=== PATIENT | female | born 1990 | race African-American/Black ===

== ENCOUNTER 2023-08-26 09:30 | Emergency (ER) | payer MEDICAID ==
[~2023-08-26] VITALS: Ht 172.7 cm; Wt 133.4 kg
[2023-08-26 09:53] VITALS: BP 137/80; PULSE 92; RESP 20; TEMP 98.4; O2SAT 100
[2023-08-26] MEDS ORDERED: KETOROLAC 30 MG/ML VIAL IVP ONE (10:30)
[2023-08-26] MEDS ORDERED: ACETAMINOPHEN 325 MG TAB PO ONE (10:30)
[2023-08-26] MEDS ORDERED: PROCHLORPERAZINE 10 MG/2 ML VIAL IVP ONE (10:30)
[2023-08-26] MEDS ORDERED: diphenhydrAMINE 50 MG/ML VIAL IVP ONE (10:30)
[2023-08-26] MEDS ORDERED: NACL 0.9% 1,000 ML IV ONE (10:30)
[2023-08-26 12:46] VITALS: O2SAT 100
[2023-08-26 14:05] VITALS: PULSE 92; RESP 20; TEMP 98.4; O2SAT 100
[2023-08-26 14:08] VITALS: BP 111/57
== END 2023-08-26 14:07 | disposition home or self-care (01) ==
LOC: MED 09:30
DX: G43.909 Migraine, unspecified, not intractable, without status migrainosus (principal); Z91.018 Allergy to other foods
CPT/HCPCS: 81025; 96361; 96374; 96375; 99284; J0780; J1200; J1885; J7030

== ENCOUNTER 2023-09-28 00:15 | Emergency (ER) | payer MEDICAID ==
[~2023-09-28] VITALS: Ht 172.7 cm; Wt 132.0 kg
[2023-09-28 00:57] VITALS: BP 111/68; PULSE 71; RESP 20; TEMP 98; O2SAT 98
[2023-09-28] MEDS ORDERED: IBUP-2213 PO (02:33)
[2023-09-28] MEDS ORDERED: PRED20TA5 PO (02:33)
[2023-09-28 02:40] VITALS: BP 111/68; PULSE 71; RESP 20; TEMP 98; O2SAT 98
== END 2023-09-28 02:40 | disposition home or self-care (01) ==
LOC: MED 01:18
DX: J02.9 Acute pharyngitis, unspecified (principal); R05.9 Cough, unspecified; Z90.49 Acquired absence of other specified parts of digestive tract; Z91.018 Allergy to other foods
CPT/HCPCS: 99283

== ENCOUNTER 2023-12-13 23:24 | Emergency (ER) | payer MEDICAID ==
[~2023-12-13] VITALS: Ht 172.7 cm; Wt 133.8 kg
[~2023-12-13 23:24] MED LIST: IBUP-2213 PO; PRED20TA5 PO
[2023-12-13 23:40] VITALS: BP 127/56; PULSE 68; RESP 16; TEMP 96.8; O2SAT 99
[2023-12-13 23:50] VITALS: O2SAT 99
== END 2023-12-14 02:25 | disposition left against medical advice (07) ==
LOC: MED 23:24
DX: H57.12 Ocular pain, left eye (principal); Z53.21 Procedure and treatment not carried out due to patient leaving prior to being seen by health care provider
CPT/HCPCS: 99281

== ENCOUNTER 2024-06-22 17:00 | Emergency (ER) | payer MEDICAID ==
[~2024-06-22] VITALS: Ht 170.2 cm; Wt 134.7 kg
[2024-06-22 17:24] VITALS: BP 124/74; PULSE 83; RESP 17; TEMP 98.6; O2SAT 99
[2024-06-22] MEDS ORDERED: BENZ-300 PO (17:38)
[2024-06-22] MEDS ORDERED: ONDA-188 PO (17:38)
[2024-06-22] MEDS ORDERED: BENZ200C4 PO (17:38)
[2024-06-22] MEDS ORDERED: ALBU0.0912 INH (17:38)
[2024-06-22 18:10] LABS: FLU A ANTIGEN NEGATIVE (NEGATIVE); FLU B ANTIGEN NEGATIVE (NEGATIVE)
== END 2024-06-22 17:51 | disposition home or self-care (01) ==
LOC: MED 17:00
DX: U07.1 COVID-19 (principal); J45.909 Unspecified asthma, uncomplicated; Z79.899 Other long term (current) drug therapy; Z91.018 Allergy to other foods
CPT/HCPCS: 87081; 99283